=== PATIENT | male | born 2000 | race Caucasian/White ===

== ENCOUNTER 2022-08-14 22:05 | Inpatient (IN) | payer OTHER, SELFPAY ==
[2022-08-14 18:00] VITALS: BP 142/92; PULSE 85
[2022-08-14] MEDS: hydrOXYzine HCL 25 MG TABLET PO (23:29)
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
[2022-08-15] MEDS: hydrOXYzine HCL 25 MG TABLET PO ×2 (08:34→18:05)
[2022-08-15 08:55] VITALS: BP 124/75; RESP 18; TEMP 37.2; O2SAT 99
[2022-08-15 08:55] LABS: Estimated Average Glucose 97 mg/dL
--- NOTE | 2022-08-15 09:00 | ECG_ITS ---
Test Reason : qtc check Blood Pressure : / mmHG Vent. Rate : 089 BPM Atrial Rate : 089 BPM P-R Int : 136 ms QRS Dur : 082 ms QT Int : 344 ms P-R-T Axes : 034 067 024 degrees QTc Int : 418 ms Normal sinus rhythm Normal ECG No previous ECGs available Referred By: Jaymie Segovia Electronically Signed By:AMARJIT GRUBER MD
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
[2022-08-15 09:10] LABS: Cholesterol 233 mg/dL; HDL Cholesterol 48 mg/dL; LDL Cholesterol Calculated 169 mg/dl; Magnesium 2.2 mg/dL (1.6-2.6); Triglycerides 84 mg/dL
[2022-08-15 09:42] LABS: Folate 7.9 ng/mL (> or = 4.0); Free T4 (Free Thyroxine) 1.03 ng/dL (0.71-1.85); Thyroid Stimulating Hormone 1.22 uIU/mL (0.32-4.0); Vitamin B12 645 pg/mL (200-900)
--- NOTE | 2022-08-15 11:51 | PC.NURSE ---
Pt signed a 3-day notice it is up on Sunday, August 21, 2022
[2022-08-15] MEDS: Divalproex Sodium ER 250 MG TAB.ER.24H 750 MG PO (13:13)
[2022-08-15] MEDS: Escitalopram Oxalate 10 MG TABLET 30 MG PO (13:13)
[2022-08-15 14:07] LABS: Alanine Aminotransferase 19 U/L (0-40); Albumin Level 5.1 g/dL (3.5-5.0); Alkaline Phosphatase 78 U/L (39-117); Aspartate Amino Transferase 15 U/L (5-37); Bilirubin Direct 0.1 mg/dL (0.0-0.5); Bilirubin Total 0.6 mg/dL (0.0-1.0); Total Protein 7.8 g/dL (6.5-8.0)
--- NOTE | 2022-08-15 15:37 | P.CONHOSP_ITS ---
History of Present Illness Data of Consult Service Date: 08/15/22 Requesting physician: Santana Connolly Primary Care Provider: Unknown Physician HPI Reason for consult: medical H&P 22-year-old male with history of unspecified seizure, marijuana use, and anxiety/depression admitted to Psychiatry with consult placed to hospitalist service for medical H and P. He states he is taking Depakote and is followed with a neurologist but the etiology of his isolated seizure 2 years ago remains unclear. He denies any alcohol use, illicit drug use, or cigarette smoking. He has had intermittent hypertensive episodes which he attributes to white coat anxiety. He has no complaints at this time. Review of Systems Review of Systems: General: No fevers, malaise, unintentional weight loss HEENT: No blurred vision, diplopia. No sore throat, nasal congestion, rhinorrhea, sinus pain, ear pain Cardiovascular: No chest pain, palpitations, or leg edema Respiratory: No shortness of breath, wheezing, cough GI: No abdominal pain, nausea, vomiting, diarrhea, constipation, melena, hematochezia : No dysuria, hematuria, increased urinary frequency, decreased urinary output MSK: No myalgia, back pain Neuro: No headaches, weakness, paresthesias Skin: No rashes or lesions PMFSH Medical History Anxiety and depression Marijuana use Seizure Social History Household Members: Family Household Members Other:: LIVES WITH SIBLINGS AND MOTHER Housing: Unknown / Unable to assess Do you presently have visiting nurse or other home services: No Patient Tobacco Use Status: Never used Tobacco Smoked in Last 30 Days: No e-Cigarette/Vaping Use: Never Used Patient Interested in Nicotine Replacement: No Patient Given Instructions on How to Stop Smoking: No Second Hand Smoke Exposure: No Use of substances other than those prescribed or required for medical reasons: Yes Substance Use Type: Marijuana Substance Use Frequency: Chronic Longstanding Last Used Substance: Just Prior to Admission Currently Displaying Signs/Symptoms of Drug Intoxication Withdrawal: No Any prior treatment program specific to substance use: No Have you been hit, kicked, punched, or otherwise hurt by someone within the past year? If so, by whom?: No Do you feel safe in your current relationship?: No Current Relationship Is there a partner from a previous relationship who is making you feel unsafe now?: No Are you made to feel afraid or neglected: No Advance Directives: No Advance Directives Information Provided: No Do you have thoughts of harming others: None Do you have a plan to hurt others: No Plan Recently lost weight without trying: No Eating poorly because of decreased appetite: No Nutrition Risks: No Nutritional Risk Poor oral hygiene: No Meds Allergies Allergy/AdvReac Type Severity Reaction Status Date / Time No Known Allergies Allergy Verified 08/14/22 17:39 Active Medications: Current Medications Acetaminophen (Acetaminophen 325 Mg Tablet) 650 mg PO Q6H PRN PRN Reason: Headache/Pain Mild Scale (1-3) Al Hydroxide/Mg Hydroxide (Magnesium Hydrox/Alum Hydrox 30 Ml Oral.Susp) 30 ml PO Q6H PRN PRN Reason: Heartburn/Nausea Clonidine HCl (Clonidine Hcl 0.1 Mg Tablet) 0.1 mg PO Q4H PRN; Protocol PRN Reason: Anxiety Divalproex Sodium (Divalproex Sodium 250 Mg Tablet.) 250 mg PO BID SUKUMAR Divalproex Sodium (Divalproex Sodium 500 Mg Tablet.) 500 mg PO BID [facility] Escitalopram Oxalate (Escitalopram Oxalate 10 Mg Tablet) 30 mg PO DAILY [facility] Last Admin: 08/15/22 13:13 Dose: 30 mg Hydroxyzine HCl (Hydroxyzine Hcl 25 Mg Tablet) 25 mg PO Q6H PRN PRN Reason: Anxiety Last Admin: 08/15/22 08:34 Dose: 25 mg Magnesium Hydroxide (Milk Of Magnesia 30 Ml Oral.Susp) 30 ml PO DAILY PRN PRN Reason: Constipation Home Medications Medication Instructions Recorded Confirmed Last Taken Type clonidine HCl 0.1 mg tablet 0.1 mg PO BID PRN Anxiety 08/15/22 08/15/22 Unknown History divalproex 250 mg tablet,delayed 250 mg PO BID 08/15/22 08/15/22 Unknown History release (Depakote) divalproex 500 mg tablet,delayed 500 mg PO BID 08/15/22 08/15/22 Unknown History release (Depakote) escitalopram oxalate 20 mg tablet 20 mg PO DAILY 08/15/22 08/15/22 Unknown History (Lexapro) Physical Exam Vital Signs and Narrative: Vital Signs: Last Vital Signs Temp 99.0 F 08/15/22 08:55 Pulse 85 08/14/22 18:00 Resp 18 08/15/22 08:55 BP 124/75 08/15/22 08:55 Pulse Ox 99 08/15/22 08:55 O2 Del Method Room Air 08/15/22 08:55 Constitutional - Awake and Alert, No apparent distress Eyes - PERRLA, EOMI Cardiovascular - S1S2, RRR, No edema Respiratory - Normal lung expansion, Normal respiratory effort, No respiratory distress, CTA bilaterally Gastrointestinal - NT / ND; +BS; No rebound or guarding Extremities - no calf tenderness bilaterally, no swelling Musculoskeletal - Normal inspection, normal ROM Skin - Warm/Dry Neurological - Alert & oriented x3, CN II-XII in tact, 5/5 strength BUE and BLE Psychological - Appropriate affect Results Labs Labs: Laboratory Results - last 24 hr 08/15/22 08/15/22 08/15/22 08:06 08:06 13:38 Estimat Average Glucose 97 Hemoglobin A1c % 5.0 Magnesium 2.2 Total Bilirubin 0.6 Direct Bilirubin 0.1 AST 15 ALT 19 Alkaline Phosphatase 78 Total Protein 7.8 Albumin 5.1 H Triglycerides 84 Cholesterol 233 LDL Cholesterol, Calc 169 HDL Cholesterol 48 Vitamin B12 645 Folate 7.9 TSH 1.22 Free T4 1.03 Assessment and Plan (1) Routine medical exam: Status: Acute Plan 22-year-old male with history of unspecified seizure, marijuana use, and anxiety/depression admitted to Psychiatry with consult placed to hospitalist service for medical H and P. #Mood disorder -plan per psychiatry #Isolated seizure unclear etiology -Tonic-clonic seizure x 2 years ago #Intermittent HTN- likely anxiety driven white coat htn -Would not recommend antihypertensives at this time -Manage anxiety Thank you for allowing me to participate in this consult. Signing off at this time. Please do not hesitate to call for further questions. Time Spent With Patient Time: Total time managing care of this patient today ____ minutes.
[2022-08-15 16:06] VITALS: BP 146/89; PULSE 74; TEMP 36.3; O2SAT 96
[2022-08-15 18:02] VITALS: BP 150/76; PULSE 85
[2022-08-15] MEDS: cloNIDine HCL 0.1 MG TABLET PO ×2 (18:05→23:11)
--- NOTE | 2022-08-15 21:46 | PC.NURSE ---
Patient approached this promotion writer around 1800 and c/o high level of anxiety and nausea. Patient said he had been taking a nap and woke up anxious and disoriented and was experiencing nausea. This promotion writer gave patient prn dose of Clonidine 0.1 mg po and Hydroxyzine 25 mg po at 1805 with positive effect. Patient was encouraged to ask for prns before his anxiety gets too high. Patient agreed.
[2022-08-15 23:05] VITALS: BP 140/95; PULSE 91
[2022-08-15] MEDS: Divalproex Sodium 500 MG TABLET.DR PO (23:08)
[2022-08-15] MEDS: Divalproex Sodium 250 MG TABLET.DR PO (23:11)
[2022-08-16] MEDS: Divalproex Sodium 500 MG TABLET.DR PO ×2 (09:03→22:17)
[2022-08-16] MEDS: Divalproex Sodium 250 MG TABLET.DR PO ×2 (09:04→22:17)
[2022-08-16] MEDS: Escitalopram Oxalate 10 MG TABLET 30 MG PO (09:04)
[2022-08-16] MEDS: hydrOXYzine HCL 25 MG TABLET PO ×2 (09:11→17:38)
[2022-08-16 09:15] VITALS: BP 131/79; PULSE 81; RESP 18; TEMP 36.6; O2SAT 99
[2022-08-16] MEDS: cloNIDine HCL 0.1 MG TABLET PO ×2 (13:52→22:17)
--- NOTE | 2022-08-16 16:44 | HO.PSYCHPN ---
Subjective Subjective Date of Service: 08/16/22 Reason For Visit: Recurrent major depression, EVER Seizure Disorder Subjective Notes: Conditional Voluntary and 3 Day Interim History: Pt reports no SI, medications are without adverse effects he reports. States he slept OK, no panic attacks today, anxiety overall is decreased and no sx of derealization today. Team has discussed with mother possible application for DMH/DDS Medication Compliance: Yes Side effects from medications: No Attending Groups: Intermittent Review of Systems Acute medical concerns: No Medical Review of Systems: unchanged Mental Status Exam Mental Status Exam Narrative: Pt is alert and oriented; behavior is cooperative, anxious, tremulous; dressed in casual attire with unkempt hair but adequate hygiene; mood is described as anxious and affect congruent; eye contact appropriate; Speech is normal rate, volume and prosody and not pressured; no psychomotor agitation/retardation present; thought process is organized and goal directed; Thought content is on debilitating anxiety, treatment; otherwise pertinent to relevant topics and without any delusional content, paranoid ideations or grandiosity; denies any SI/HI. There is no evidence of perceptual disturbance. Patients insight and judgment appear intact. Patient Appearance: Appropriate Patient Orientation: Person, Place, Time and Situation Level of Consciousness: Alert Patient Behavior: Appropriate, Talkative and Cooperative Mood Description: Anxious and Apprehensive Affect Description: Anxious and Apprehensive Patient Cognition Impaired: No Ability to Follow Directions: Good Speech Pattern: Spontaneous Speech Memory Description: Intact Hallucinations: None Delusions: Not Present Perceptual Disturbances: Derealization (no sx today.) Thought Process: Distracted Thought Content: positive for Suicidal Ideation (denies) Depressive Symptoms: Increased Anxiety Judgement: Fair Diagnostics Vital Signs (24Hr): Vital Signs - 24 hr 08/15/22 18:02 08/15/22 23:05 08/16/22 09:15 Temperature 97.9 F Pulse Rate 85 91 81 Respiratory Rate 18 Blood Pressure 150/76 H 140/95 H 131/79 Pulse Oximetry 99 Oxygen Delivery Method Room Air Labs Labs: Laboratory Results - last 48 hr 08/15/22 08/15/22 08/15/22 08:06 08:06 13:38 Estimat Average Glucose 97 Hemoglobin A1c % 5.0 Magnesium 2.2 Total Bilirubin 0.6 Direct Bilirubin 0.1 AST 15 ALT 19 Alkaline Phosphatase 78 Total Protein 7.8 Albumin 5.1 H Triglycerides 84 Cholesterol 233 LDL Cholesterol, Calc 169 HDL Cholesterol 48 Vitamin B12 645 Folate 7.9 TSH 1.22 Free T4 1.03 Medications Medications Current Medications Acetaminophen (Acetaminophen 325 Mg Tablet) 650 mg PO Q6H PRN PRN Reason: Headache/Pain Mild Scale (1-3) Al Hydroxide/Mg Hydroxide (Magnesium Hydrox/Alum Hydrox 30 Ml Oral.Susp) 30 ml PO Q6H PRN PRN Reason: Heartburn/Nausea Clonidine HCl (Clonidine Hcl 0.1 Mg Tablet) 0.1 mg PO Q4H PRN; Protocol PRN Reason: Anxiety Last Admin: 08/16/22 13:52 Dose: 0.1 mg Divalproex Sodium (Divalproex Sodium 250 Mg Tablet.) 250 mg PO BID [facility] Last Admin: 08/16/22 09:04 Dose: 250 mg Divalproex Sodium (Divalproex Sodium 500 Mg Tablet.) 500 mg PO BID [facility] Last Admin: 08/16/22 09:03 Dose: 500 mg Escitalopram Oxalate (Escitalopram Oxalate 10 Mg Tablet) 30 mg PO DAILY [facility] Last Admin: 08/16/22 09:04 Dose: 30 mg Hydroxyzine HCl (Hydroxyzine Hcl 25 Mg Tablet) 25 mg PO Q6H PRN PRN Reason: Anxiety Last Admin: 08/16/22 09:11 Dose: 25 mg Magnesium Hydroxide (Milk Of Magnesia 30 Ml Oral.Susp) 30 ml PO DAILY PRN PRN Reason: Constipation Allergies Allergies Allergy/AdvReac Type Severity Reaction Status Date / Time No Known Allergies Allergy Verified 08/14/22 17:39 Assessment & Plan Assessment & Plan (1) EVER (generalized anxiety disorder): Status: Acute Code(s): F41.1 - Generalized anxiety disorder (2) Panic disorder: Status: Acute Code(s): F41.0 - Panic disorder [episodic paroxysmal anxiety] (3) ADHD: Status: Acute Code(s): F90.9 - Attention-deficit hyperactivity disorder, unspecified type Plan Patient is a 22-year-old male with history of depression, anxiety, ADHD, possible Seizure disorder (pt had one seizure 2 years ago and has been on depakote since) who presents for sudden bout of De- realization that significantly worried him. -patient meets criteria for EVER with panic disorder; likely PTSD; despite biological loading patient denies any history of manic episodes or behaviors -patient has tolerated Lexapro and agrees to increase dose, understanding that GED often requires higher than regular dosing -will continue Depakote; patient had 1 seizure episode 2 years ago and has been on Depakote ever since. -patient denies that towel around his neck was suicide attempt; he says that intermittently SI will cross his mind but this is chronic and it is not a concern, he has no plans or intention -discussed need for psychiatrist and therapy with which patient agrees Plan: CV Q 15 minute checks Increase Lexapro to 30 mg; often she EVER requires higher dosing than this; will titrate as clinically determined Increase access to clonidine 0.1 mg to q.4h p.r.n. Continue Depakote 750 mg b.i.d. -will get LFTs/ammonia level Reviewed labs from sending facility; CBC, lytes, BUN creatinine within normal limits; UDS negative except for cannabis; valproic acid level 82.8 08/16/22 Continue current regime and plan of care. Informed Consent: understands and further education needed Reason for contiued inpatient stay Substantial Risk for: rapid decompensation Time Spent With Patient Time: Total time managing care of this patient today ____ minutes.
[2022-08-16 22:16] VITALS: BP 134/86; PULSE 87
--- NOTE | 2022-08-17 08:19 | P.PNPSI_ITS ---
Subjective Subjective Date of Service: 08/17/22 Reason For Visit: Recurrent major depression, EVER Seizure Disorder Interim History: Met with patient; discussed with team Patient reports that he is feeling better. Although he did have a panic attack yesterday he says that the frequency of his severe and bouts of anxiety have lessened. Patient is tolerating increased Lexapro and agrees to increase it further to 40 mg. Patient also finding hydroxyzine helpful. Social work discussed case with patient's mother who says patient did have an IEP in high school and had some visual and general processing disabilities; patient has some regressed behaviors at home and due to his anxiety wants to sleep on the floor in her room. Mental Status Exam Mental Status Exam Narrative: Pt is alert and oriented; behavior is cooperative, friendly, more calm; dressed in casual attire with unkempt hair but adequate hygiene; mood is described as little better and affect congruent, more calm; eye contact appropriate; Speech is normal rate, volume and prosody and not pressured; no psychomotor agitation/retardation present; thought process is organized and goal directed; Thought content is on treatment, dealing with debilitating anxiety; otherwise pertinent to relevant topics and without any delusional content, paranoid ideations or grandiosity; denies any SI/HI. There is no evidence of perceptual disturbance. Patients insight and judgment are intact. Diagnostics Vital Signs (24Hr): Vital Signs - 24 hr 08/16/22 09:15 08/16/22 22:16 Temperature 97.9 F Pulse Rate 81 87 Respiratory Rate 18 Blood Pressure 131/79 134/86 Pulse Oximetry 99 Oxygen Delivery Method Room Air Labs Labs: Laboratory Results - last 48 hr 08/15/22 08/15/22 08/15/22 08:06 08:06 13:38 Estimat Average Glucose 97 Hemoglobin A1c % 5.0 Magnesium 2.2 Total Bilirubin 0.6 Direct Bilirubin 0.1 AST 15 ALT 19 Alkaline Phosphatase 78 Total Protein 7.8 Albumin 5.1 H Triglycerides 84 Cholesterol 233 LDL Cholesterol, Calc 169 HDL Cholesterol 48 Vitamin B12 645 Folate 7.9 TSH 1.22 Free T4 1.03 Medications Medications Current Medications Acetaminophen (Acetaminophen 325 Mg Tablet) 650 mg PO Q6H PRN PRN Reason: Headache/Pain Mild Scale (1-3) Al Hydroxide/Mg Hydroxide (Magnesium Hydrox/Alum Hydrox 30 Ml Oral.Susp) 30 ml PO Q6H PRN PRN Reason: Heartburn/Nausea Clonidine HCl (Clonidine Hcl 0.1 Mg Tablet) 0.1 mg PO Q4H PRN; Protocol PRN Reason: Anxiety Last Admin: 08/16/22 22:17 Dose: 0.1 mg Divalproex Sodium (Divalproex Sodium 250 Mg Tablet.) 250 mg PO BID [facility] Last Admin: 08/16/22 22:17 Dose: 250 mg Divalproex Sodium (Divalproex Sodium 500 Mg Tablet.) 500 mg PO BID [facility] Last Admin: 08/16/22 22:17 Dose: 500 mg Escitalopram Oxalate (Escitalopram Oxalate 10 Mg Tablet) 30 mg PO DAILY [facility] Last Admin: 08/16/22 09:04 Dose: 30 mg Hydroxyzine HCl (Hydroxyzine Hcl 25 Mg Tablet) 25 mg PO Q6H PRN PRN Reason: Anxiety Last Admin: 08/16/22 17:38 Dose: 25 mg Magnesium Hydroxide (Milk Of Magnesia 30 Ml Oral.Susp) 30 ml PO DAILY PRN PRN Reason: Constipation Allergies Allergies Allergy/AdvReac Type Severity Reaction Status Date / Time No Known Allergies Allergy Verified 08/14/22 17:39 Assessment & Plan Assessment & Plan (1) EVER (generalized anxiety disorder): Status: Acute Code(s): F41.1 - Generalized anxiety disorder (2) Panic disorder: Status: Acute Code(s): F41.0 - Panic disorder [episodic paroxysmal anxiety] (3) ADHD: Status: Acute Code(s): F90.9 - Attention-deficit hyperactivity disorder, unspecified type Plan Patient is a 22-year-old male with history of depression, anxiety, ADHD, possible Seizure disorder (pt had one seizure 2 years ago and has been on depakote since) who presents for sudden bout of De- realization that significantly worried him. -patient meets criteria for EVER with panic disorder; likely PTSD; despite biological loading patient denies any history of manic episodes or behaviors -patient has tolerated Lexapro and agrees to increase dose, understanding that GED often requires higher than regular dosing -will continue Depakote; patient had 1 seizure episode 2 years ago and has been on Depakote ever since. -patient denies that towel around his neck was suicide attempt; he says that intermittently SI will cross his mind but this is chronic and it is not a concern, he has no plans or intention -discussed need for psychiatrist and therapy with which patient agrees Hospital course: 08/16/22 Continue current regime and plan of care. 08/17 patient reports he is feeling a little better. Still having panic attacks however he says they are lessening in frequency. Patient feels more hopeful. Agrees to increase Lexapro to 40 mg; service writer advisor discussed risks/side effects of titration and patient prefers to risk being on a higher dose than needed as he feels that the potential benefit outweighs the risk. Plan: 3 day notice Q 15 minute checks Will increase Lexapro to 40 mg on 08/19; often EVER requires higher dosing than this; will titrate as clinically determined Continue clonidine 0.1 mg to q.4h p.r.n. Continue Depakote 750 mg b.i.d. -LFTs reviewed and WNL Reviewed labs from sending facility; CBC, lytes, BUN creatinine within normal limits; UDS negative except for cannabis; valproic acid level 82.8 Patient educated on: diagnosis, medication risk/benefits and therapeutic strategies Informed Consent: understands Reason for contiued inpatient stay Substantial Risk for: stable for discharge Time Spent With Patient Time: Total time managing care of this patient today ____ minutes.
[2022-08-17] MEDS: hydrOXYzine HCL 25 MG TABLET PO ×2 (08:32→18:01)
[2022-08-17] MEDS: Escitalopram Oxalate 10 MG TABLET 30 MG PO (08:32)
[2022-08-17] MEDS: Divalproex Sodium 500 MG TABLET.DR PO ×2 (08:32→22:35)
[2022-08-17] MEDS: Divalproex Sodium 250 MG TABLET.DR PO ×2 (08:32→22:35)
[2022-08-17 09:43] VITALS: BP 161/76; PULSE 100; RESP 18; TEMP 36.9; O2SAT 98
[2022-08-17] MEDS: cloNIDine HCL 0.1 MG TABLET PO ×3 (13:00→22:40)
[2022-08-17 16:12] VITALS: BP 114/60; PULSE 75; TEMP 36.6
[2022-08-17 19:35] VITALS: BP 156/90; PULSE 84
[2022-08-17 22:40] VITALS: BP 134/71; PULSE 85
[2022-08-18 06:00] VITALS: BP 117/63; PULSE 95; RESP 14; TEMP 36.6; O2SAT 99
[2022-08-18] MEDS: Escitalopram Oxalate 10 MG TABLET 30 MG PO (08:27)
[2022-08-18] MEDS: Divalproex Sodium 250 MG TABLET.DR PO ×2 (08:27→22:04)
[2022-08-18] MEDS: Divalproex Sodium 500 MG TABLET.DR PO ×2 (08:27→22:04)
[2022-08-18] MEDS: cloNIDine HCL 0.1 MG TABLET PO ×3 (08:41→22:05)
--- NOTE | 2022-08-18 15:45 | HO.PSYCHPN ---
Subjective Subjective Date of Service: 08/18/22 Reason For Visit: Recurrent major depression, EVER Seizure Disorder Interim History: Patient seen. Chart reviewed. Case discussed with RN. Mostly isolative. Asked for PRN clonidine for anxiety. BP somewhat elevated Medication Compliance: Yes Side effects from medications: No Attending Groups: No Review of Systems Acute medical concerns: No Medical Review of Systems: unchanged Mental Status Exam Mental Status Exam Patient Appearance: Unkempt Patient Orientation: Person, Place and Time Level of Consciousness: Lethargic Patient Behavior: Passive and Isolative Mood Description: Apathetic Affect Description: Withdrawn Ability to Follow Directions: Good Speech Pattern: Soft-Spoken Memory Description: Intact Hallucinations: None Delusions: Not Present Thought Process: Linear Thought Content: positive for Poverty of Content Depressive Symptoms: Increased Fatigue Judgement: Fair Diagnostics Vital Signs (24Hr): Vital Signs - 24 hr 08/17/22 16:12 08/17/22 19:35 08/17/22 22:40 Temperature 98 F Pulse Rate 75 84 85 Respiratory Rate Blood Pressure 114/60 156/90 H 134/71 Pulse Oximetry Oxygen Delivery Method 08/18/22 06:00 Temperature 97.8 F Pulse Rate 95 Respiratory Rate 14 Blood Pressure 117/63 Pulse Oximetry 99 Oxygen Delivery Method Room Air Medications Medications Current Medications Acetaminophen (Acetaminophen 325 Mg Tablet) 650 mg PO Q6H PRN PRN Reason: Headache/Pain Mild Scale (1-3) Al Hydroxide/Mg Hydroxide (Magnesium Hydrox/Alum Hydrox 30 Ml Oral.Susp) 30 ml PO Q6H PRN PRN Reason: Heartburn/Nausea Clonidine HCl (Clonidine Hcl 0.1 Mg Tablet) 0.1 mg PO Q4H PRN; Protocol PRN Reason: Anxiety Last Admin: 08/18/22 13:09 Dose: 0.1 mg Divalproex Sodium (Divalproex Sodium 250 Mg Tablet.) 250 mg PO BID@0900,2200 [facility] Last Admin: 08/18/22 08:27 Dose: 250 mg Divalproex Sodium (Divalproex Sodium 500 Mg Tablet.) 500 mg PO BID@0900,2200 [facility] Last Admin: 08/18/22 08:27 Dose: 500 mg Escitalopram Oxalate (Escitalopram Oxalate 20 Mg Tablet) 40 mg PO DAILY [facility] Hydroxyzine HCl (Hydroxyzine Hcl 25 Mg Tablet) 25 mg PO Q6H PRN PRN Reason: Anxiety Last Admin: 08/17/22 18:01 Dose: 25 mg Magnesium Hydroxide (Milk Of Magnesia 30 Ml Oral.Susp) 30 ml PO DAILY PRN PRN Reason: Constipation Allergies Allergies Allergy/AdvReac Type Severity Reaction Status Date / Time No Known Allergies Allergy Verified 08/14/22 17:39 Assessment & Plan Assessment & Plan (1) EVER (generalized anxiety disorder): Status: Acute Code(s): F41.1 - Generalized anxiety disorder (2) Panic disorder: Status: Acute Code(s): F41.0 - Panic disorder [episodic paroxysmal anxiety] Assessment and Plan: No med changes. Lexapro just increased (3) ADHD: Status: Acute Code(s): F90.9 - Attention-deficit hyperactivity disorder, unspecified type Plan Patient is a 22-year-old male with history of depression, anxiety, ADHD, possible Seizure disorder (pt had one seizure 2 years ago and has been on depakote since) who presents for sudden bout of De- realization that significantly worried him. -patient meets criteria for EVER with panic disorder; likely PTSD; despite biological loading patient denies any history of manic episodes or behaviors -patient has tolerated Lexapro and agrees to increase dose, understanding that GED often requires higher than regular dosing -will continue Depakote; patient had 1 seizure episode 2 years ago and has been on Depakote ever since. -patient denies that towel around his neck was suicide attempt; he says that intermittently SI will cross his mind but this is chronic and it is not a concern, he has no plans or intention -discussed need for psychiatrist and therapy with which patient agrees Hospital course: 08/16/22 Continue current regime and plan of care. 08/17 patient reports he is feeling a little better. Still having panic attacks however he says they are lessening in frequency. Patient feels more hopeful. Agrees to increase Lexapro to 40 mg; selling underwriter discussed risks/side effects of titration and patient prefers to risk being on a higher dose than needed as he feels that the potential benefit outweighs the risk. Plan: 3 day notice Q 15 minute checks Will increase Lexapro to 40 mg on 08/19; often EVER requires higher dosing than this; will titrate as clinically determined Continue clonidine 0.1 mg to q.4h p.r.n. Continue Depakote 750 mg b.i.d. -LFTs reviewed and WNL Reviewed labs from sending facility; CBC, lytes, BUN creatinine within normal limits; UDS negative except for cannabis; valproic acid level 82.8 Reason for continued inpatient stay Substantial Risk for: harm to self and inability to function Time Spent With Patient Time: Total time managing care of this patient today ___15_ minutes.
[2022-08-18 15:49] VITALS: BP 121/58; PULSE 75
[2022-08-18] MEDS: hydrOXYzine HCL 25 MG TABLET PO (18:11)
[2022-08-18 22:07] VITALS: BP 178/93; PULSE 103
[2022-08-19 06:00] VITALS: BP 99/51; PULSE 81; RESP 14; TEMP 36.8; O2SAT 99
[2022-08-19] MEDS: Escitalopram Oxalate 20 MG TABLET 40 MG PO (08:43)
[2022-08-19] MEDS: Divalproex Sodium 250 MG TABLET.DR PO ×2 (08:43→22:35)
[2022-08-19] MEDS: Divalproex Sodium 500 MG TABLET.DR PO ×2 (08:43→22:35)
[2022-08-19] MEDS: hydrOXYzine HCL 25 MG TABLET PO ×2 (09:15→21:18)
--- NOTE | 2022-08-19 09:17 | P.PNPSI_ITS ---
Subjective Subjective Date of Service: 08/19/22 Reason For Visit: Recurrent major depression, EVER Seizure Disorder Interim History: Patient seen. Chart reviewed. Case discussed with RN. Patient reporting that Vistaril PRN is helpful and he would like to have a prescription for it when he leaves. Has been calm on the unit, isolative and in bed at times. Medication Compliance: Yes Side effects from medications: No Attending Groups: No Review of Systems Acute medical concerns: No Mental Status Exam Mental Status Exam Patient Appearance: Unkempt Level of Consciousness: Alert Patient Behavior: Appropriate and Isolative Mood Description: Anxious Affect Description: Withdrawn Patient Cognition Impaired: No Speech Pattern: Clear Hallucinations: None Delusions: Not Present Thought Process: Linear Depressive Symptoms: Increased Anxiety and Difficulty Sleeping Judgement: Fair Diagnostics Vital Signs (24Hr): Vital Signs - 24 hr 08/18/22 15:49 08/18/22 22:07 08/19/22 06:00 Temperature 98.2 F Pulse Rate 75 103 H 81 Respiratory Rate 14 Blood Pressure 121/58 L 178/93 H 99/51 L Pulse Oximetry 99 Oxygen Delivery Method Room Air Medications Medications Current Medications Acetaminophen (Acetaminophen 325 Mg Tablet) 650 mg PO Q6H PRN PRN Reason: Headache/Pain Mild Scale (1-3) Al Hydroxide/Mg Hydroxide (Magnesium Hydrox/Alum Hydrox 30 Ml Oral.Susp) 30 ml PO Q6H PRN PRN Reason: Heartburn/Nausea Clonidine HCl (Clonidine Hcl 0.1 Mg Tablet) 0.1 mg PO Q4H PRN; Protocol PRN Reason: Anxiety Last Admin: 08/18/22 22:05 Dose: 0.1 mg Divalproex Sodium (Divalproex Sodium 250 Mg Tablet.) 250 mg PO BID@0900,2200 [facility] Last Admin: 08/19/22 08:43 Dose: 250 mg Divalproex Sodium (Divalproex Sodium 500 Mg Tablet.) 500 mg PO BID@0900,2200 [facility] Last Admin: 08/19/22 08:43 Dose: 500 mg Escitalopram Oxalate (Escitalopram Oxalate 20 Mg Tablet) 40 mg PO DAILY [facility] Last Admin: 08/19/22 08:43 Dose: 40 mg Hydroxyzine HCl (Hydroxyzine Hcl 25 Mg Tablet) 25 mg PO Q6H PRN PRN Reason: Anxiety Last Admin: 08/19/22 09:15 Dose: 25 mg Magnesium Hydroxide (Milk Of Magnesia 30 Ml Oral.Susp) 30 ml PO DAILY PRN PRN Reason: Constipation Allergies Allergies Allergy/AdvReac Type Severity Reaction Status Date / Time No Known Allergies Allergy Verified 08/14/22 17:39 Assessment & Plan Assessment & Plan (1) EVER (generalized anxiety disorder): Status: Acute Code(s): F41.1 - Generalized anxiety disorder (2) Panic disorder: Status: Acute Code(s): F41.0 - Panic disorder [episodic paroxysmal anxiety] Assessment and Plan: No med changes. Lexapro just increased (3) ADHD: Status: Acute Code(s): F90.9 - Attention-deficit hyperactivity disorder, unspecified type Plan Patient is a 22-year-old male with history of depression, anxiety, ADHD, possible Seizure disorder (pt had one seizure 2 years ago and has been on depakote since) who presents for sudden bout of De- realization that significantly worried him. -patient meets criteria for EVER with panic disorder; likely PTSD; despite biological loading patient denies any history of manic episodes or behaviors -patient has tolerated Lexapro and agrees to increase dose, understanding that GED often requires higher than regular dosing -will continue Depakote; patient had 1 seizure episode 2 years ago and has been on Depakote ever since. -patient denies that towel around his neck was suicide attempt; he says that intermittently SI will cross his mind but this is chronic and it is not a concern, he has no plans or intention -discussed need for psychiatrist and therapy with which patient agrees Hospital course: 08/16/22 Continue current regime and plan of care. 08/17 patient reports he is feeling a little better. Still having panic attacks however he says they are lessening in frequency. Patient feels more hopeful. Agrees to increase Lexapro to 40 mg; magazine writer discussed risks/side effects of titration and patient prefers to risk being on a higher dose than needed as he feels that the potential benefit outweighs the risk. 08/18 no med changes 08/19 discussed op[tion of standing vistaril but patient prefers to keep it PRN. Wants a prescription for it at discharge. Plan: 3 day notice Q 15 minute checks Will increase Lexapro to 40 mg on 08/19; often EVER requires higher dosing than this; will titrate as clinically determined Continue clonidine 0.1 mg to q.4h p.r.n. Continue Depakote 750 mg b.i.d. -LFTs reviewed and WNL Reviewed labs from sending facility; CBC, lytes, BUN creatinine within normal limits; UDS negative except for cannabis; valproic acid level 82.8 Reason for continued inpatient stay Substantial Risk for: harm to self Time Spent With Patient Time: Total time managing care of this patient today ____ minutes.
[2022-08-19] MEDS: cloNIDine HCL 0.1 MG TABLET PO ×2 (14:28→22:35)
[2022-08-19 18:30] VITALS: BP 140/80; PULSE 83; TEMP 36.4
[2022-08-20 06:00] VITALS: BP 113/55; PULSE 71; RESP 14; TEMP 36.9; O2SAT 100
[2022-08-20] MEDS: Escitalopram Oxalate 20 MG TABLET 40 MG PO (08:32)
[2022-08-20] MEDS: Divalproex Sodium 250 MG TABLET.DR PO ×2 (08:32→23:02)
[2022-08-20] MEDS: Divalproex Sodium 500 MG TABLET.DR PO ×2 (08:32→23:02)
--- NOTE | 2022-08-20 09:13 | HO.PSYCHPN ---
Subjective Subjective Date of Service: 08/20/22 Reason For Visit: Recurrent major depression, EVER Seizure Disorder Subjective Notes: 3 Day (expires 08/21) Interim History: Reports sleeping and eating ok. Denies depression or anxiety. Medication Compliance: Yes Side effects from medications: No Attending Groups: No Review of Systems Acute medical concerns: No Mental Status Exam Mental Status Exam Patient Appearance: Well Grooomed Level of Consciousness: Alert Patient Behavior: Appropriate Mood Description: Calm Speech Pattern: Clear Hallucinations: None Delusions: Not Present Thought Process: Intact Thought Content: negative for Suicidal Ideation or negative for Homicidal Ideation Judgement: Fair Diagnostics Vital Signs (24Hr): Vital Signs - 24 hr 08/19/22 18:30 08/20/22 06:00 Temperature 97.6 F 98.5 F Pulse Rate 83 71 Respiratory Rate 14 Blood Pressure 140/80 H 113/55 L Pulse Oximetry 100 Oxygen Delivery Method Room Air Medications Medications Current Medications Acetaminophen (Acetaminophen 325 Mg Tablet) 650 mg PO Q6H PRN PRN Reason: Headache/Pain Mild Scale (1-3) Al Hydroxide/Mg Hydroxide (Magnesium Hydrox/Alum Hydrox 30 Ml Oral.Susp) 30 ml PO Q6H PRN PRN Reason: Heartburn/Nausea Clonidine HCl (Clonidine Hcl 0.1 Mg Tablet) 0.1 mg PO Q4H PRN; Protocol PRN Reason: Anxiety Last Admin: 08/19/22 22:35 Dose: 0.1 mg Divalproex Sodium (Divalproex Sodium 250 Mg Tablet.) 250 mg PO BID@0900,2200 [facility] Last Admin: 08/20/22 08:32 Dose: 250 mg Divalproex Sodium (Divalproex Sodium 500 Mg Tablet.) 500 mg PO BID@0900,2200 [facility] Last Admin: 08/20/22 08:32 Dose: 500 mg Escitalopram Oxalate (Escitalopram Oxalate 20 Mg Tablet) 40 mg PO DAILY [facility] Last Admin: 08/20/22 08:32 Dose: 40 mg Hydroxyzine HCl (Hydroxyzine Hcl 25 Mg Tablet) 25 mg PO Q6H PRN PRN Reason: Anxiety Last Admin: 08/19/22 21:18 Dose: 25 mg Magnesium Hydroxide (Milk Of Magnesia 30 Ml Oral.Susp) 30 ml PO DAILY PRN PRN Reason: Constipation Allergies Allergies Allergy/AdvReac Type Severity Reaction Status Date / Time No Known Allergies Allergy Verified 08/14/22 17:39 Assessment & Plan Assessment & Plan (1) EVER (generalized anxiety disorder): Status: Acute Code(s): F41.1 - Generalized anxiety disorder (2) Panic disorder: Status: Acute Code(s): F41.0 - Panic disorder [episodic paroxysmal anxiety] Assessment and Plan: No med changes. Lexapro just increased (3) ADHD: Status: Acute Code(s): F90.9 - Attention-deficit hyperactivity disorder, unspecified type Plan Patient is a 22-year-old male with history of depression, anxiety, ADHD, possible Seizure disorder (pt had one seizure 2 years ago and has been on depakote since) who presents for sudden bout of De- realization that significantly worried him. -patient meets criteria for EVER with panic disorder; likely PTSD; despite biological loading patient denies any history of manic episodes or behaviors -patient has tolerated Lexapro and agrees to increase dose, understanding that GED often requires higher than regular dosing -will continue Depakote; patient had 1 seizure episode 2 years ago and has been on Depakote ever since. -patient denies that towel around his neck was suicide attempt; he says that intermittently SI will cross his mind but this is chronic and it is not a concern, he has no plans or intention -discussed need for psychiatrist and therapy with which patient agrees Hospital course: 08/16/22 Continue current regime and plan of care. 08/17 patient reports he is feeling a little better. Still having panic attacks however he says they are lessening in frequency. Patient feels more hopeful. Agrees to increase Lexapro to 40 mg; jingle writer discussed risks/side effects of titration and patient prefers to risk being on a higher dose than needed as he feels that the potential benefit outweighs the risk. 08/18 no med changes 08/19 discussed option of standing vistaril but patient prefers to keep it PRN. Wants a prescription for it at discharge. 08/20 no med changes Plan: 3 day notice Q 15 minute checks Will increase Lexapro to 40 mg on 08/19; often EVER requires higher dosing than this; will titrate as clinically determined Continue clonidine 0.1 mg to q.4h p.r.n. Continue Depakote 750 mg b.i.d. -LFTs reviewed and WNL Reviewed labs from sending facility; CBC, lytes, BUN creatinine within normal limits; UDS negative except for cannabis; valproic acid level 82.8 Reason for continued inpatient stay Substantial Risk for: stable for discharge (provided follow up and increased supports in place) Time Spent With Patient Time: Total time managing care of this patient today ____ minutes.
[2022-08-20] MEDS: hydrOXYzine HCL 25 MG TABLET PO ×2 (11:29→18:06)
[2022-08-20] MEDS: cloNIDine HCL 0.1 MG TABLET PO ×2 (13:53→23:06)
[2022-08-20 23:00] VITALS: BP 101/51; PULSE 66; TEMP 36.4
[2022-08-21] MEDS: Divalproex Sodium 500 MG TABLET.DR PO (09:10)
[2022-08-21] MEDS: Divalproex Sodium 250 MG TABLET.DR PO (09:10)
[2022-08-21] MEDS: Escitalopram Oxalate 20 MG TABLET 40 MG PO (09:10)
[2022-08-21 09:12] VITALS: BP 133/88; PULSE 88; RESP 14; TEMP 37.2; O2SAT 99
[2022-08-21] MEDS: hydrOXYzine HCL 25 MG TABLET PO (10:06)
--- NOTE | 2022-08-21 11:06 | PM.PSYDC ---
DS: Providers Provider Date of Service: 08/21/22 Date of admission: 08/14/22 22:05 Date of discharge: 08/21/22 Primary care physician: Unknown Physician Attending physician on admission: Santana Connolly Consults: 08/14/22 17:39 Consult to Hospitalist Routine Comment: Consulting Provider: Hospitalist Reason For Exam: Transfer from [facility] Attending physician on discharge: Santana Connolly DS: Diagnosis Discharge Diagnosis (1) EVER (generalized anxiety disorder): Status: Acute (2) Panic disorder: Status: Acute (3) ADHD: Status: Acute DS: Medications Discharge Medications Home Medications: Home Medications Medication Instructions Recorded Confirmed divalproex 250 mg tablet,delayed 250 mg PO BID 08/15/22 08/15/22 release (Depakote) divalproex 500 mg tablet,delayed 500 mg PO BID 08/15/22 08/15/22 release (Depakote) Previous Rx's Medication Instructions Recorded clonidine HCl 0.1 mg tablet 0.1 mg PO Q4H PRN Anxiety 30 days 08/21/22 #90 tabs escitalopram oxalate 20 mg tablet 40 mg PO DAILY 30 days #60 tabs 08/21/22 hydroxyzine HCl 25 mg tablet 25 mg PO TID PRN Anxiety 30 days 08/21/22 #90 tabs Mental Status Exam Mental Status Exam Narrative: Pt is alert and oriented; behavior is cooperative, friendly, more calm; dressed in casual attire with unkempt hair but adequate hygiene; mood is described as good and affect congruent, more calm; eye contact appropriate; Speech is normal rate, volume and prosody and not pressured; no psychomotor agitation/retardation present; thought process is organized and goal directed; Thought content is on continuing treatment, discharge; otherwise pertinent to relevant topics and without any delusional content, paranoid ideations or grandiosity; denies any SI/HI. There is no evidence of perceptual disturbance. Patients insight and judgment are intact. Data Data Completed and Pending Completed studies during hospitalization [Text1]: 08/15/22 08/15/22 08/15/22 08:06 08:06 13:38 Estimat Average Glucose 97 Hemoglobin A1c % 5.0 Magnesium 2.2 Total Bilirubin 0.6 Direct Bilirubin 0.1 AST 15 ALT 19 Alkaline Phosphatase 78 Total Protein 7.8 Albumin 5.1 H Triglycerides 84 Cholesterol 233 LDL Cholesterol, Calc 169 HDL Cholesterol 48 Vitamin B12 645 Folate 7.9 TSH 1.22 Free T4 1.03 DS: Summary Hospital Course Hospital Course: Patient is a 22-year-old male with history of depression, anxiety, ADHD, possible Seizure disorder (pt had one seizure 2 years ago and has been on depakote since) who presents for sudden bout of De- realization that significantly worried him. On admission, patient was already feeling better and agreed to increase his Lexapro. Denied any SI at all. He was diagnosed with EVER with panic disorder and thought likely to have PTSD; ASD remaining rule out. Despite biological loading for bipolar disorder, patient denies any history of manic episodes or behaviors and bipolar was currently ruled out; patient remained on outpatient regimen of Depakote which been started for history of seizures. Patient continued to have brief near panic attacks on the unit however he reported they were significantly less intense and less frequent, resolving overall quickly and even tolerable. Patient tolerated increased Lexapro dose and felt much more calm and stable; he said he is feeling hopeful about continued improvement and agreed to outpatient therapy. Patient remained in good behavioral and impulse control throughout his time on the unit and was appropriate with peers and staff. Patient was in a good mood, remaining hopeful and optimistic, without any SI and feeling ready for discharge. His 3 day notice was coming due. He Is returning home to live with his family who is supportive. While patient remains vulnerable to mood lability and dysregulation, he is currently stable and his overall stability appears to be significantly improved. Patient was not in imminent risk for harm to self or others and his request for discharge honored. Time spent discussing smoking cessation with patient: 3 to 10 minutes Status at Discharge Functional status at discharge: independent ambulation Overall status at discharge: patient is back to baseline Time Spent with Patient Time attestation: Total time managing care of this patient today ____ minutes. Time spent: Less than 30 minutes Discharge Plan Discharge Anticipated Discharge Date/Time: 08/21/22 11:05 Patient Disposition: Home, Self-Care Discharge Diagnosis: EVER Referrals: Department of Mental Health (DM) [Other] - 1 Week (Referral to the Department of Mental Health [facility] will review application which can take up to 90 days. They will follow-up with you, but you can also call and request an update on your application.) Department of Developmental Services (DDS) [Other] - 1 Week (Application for DDS is provided in your discharge paperwork. You will need to work with your parent to obtain required information and documentation before submitting. You have been referred to a CSP worker through your outpatient mental health agency [facility] who will be able to aid you in this process.) Clinical and Support Options [Other] - 08/23/22 11:00 am (Referral for Outpatient psychiatry and therapy services and community support program (CSP) worker Patient initial Therapy Intake Appointment is on 08/23/2022 at 11:00 am with Samaria Moore at [facility] in [place]. ) [Other] - 08/28/22 11:15 am (IN OFFICE) Discharge Medications: New escitalopram oxalate 20 mg Tablet 40 mg PO DAILY 30 Days Qty: 60 0RF hydroxyzine HCl 25 mg Tablet 25 mg PO TID PRN (Reason: Anxiety) 30 Days Qty: 90 0RF Continued divalproex [Depakote] 250 mg Tablet,Delayed Release (Dr/Ec) 250 mg PO BID divalproex [Depakote] 500 mg Tablet,Delayed Release (Dr/Ec) 500 mg PO BID Changed clonidine HCl 0.1 mg Tablet 0.1 mg PO Q4H PRN (Reason: Anxiety) 30 Days Qty: 90 0RF Discontinued escitalopram oxalate [Lexapro] 20 mg Tablet 20 mg PO DAILY Discharge Orders: Discharge Order (Routine); Ordered 08/21/22 Ordered By: Santana Connolly Diet: Regular diet Activity on Discharge: As tolerated Stand Alone Forms: Patient Portal Discharge page, Community Support Care Plan Goals: Maintain mood and safe behaviors Take medications as prescribed Continue to pursue sobriety Practice coping skills Continue with outpatient providers and reach out to them as needed Health Concerns: Mood stability and behaviors Plan of Treatment: Follow up with your PCP, psychiatric provider and other outpatient providers regarding above concerns Take medications as prescribed Assessment: Risk assessment at time of discharge:? Patient was interviewed prior to discharge and found to be fully oriented and without any SI or HI. Patient has insight and demonstrates good judgment in terms of wanting to pursue treatment. Patient is not in imminent risk of harm to self or others and has a safety plan that includes presenting to the closest ER or calling 911 if feeling unsafe.? Patient has been observed closely by nursing and unit staff throughout admission; patient has not engaged in any behaviors that suggest dangerousness to self or others and has demonstrated appropriate behaviors and impulse control Discharge Date/Time: 08/21/22 11:38
== END 2022-08-21 11:38 | disposition home or self-care (01) | DRG 756 ==
PROVIDERS: Clinical Nurse Specialist Psychiatric/Mental Health, Adult; Admitting Provider Psychiatry & Neurology Psychiatry; Visit Provider Psychiatry & Neurology Psychiatry
DX: F41.1 Generalized anxiety disorder (principal); G40.909 Epilepsy, unspecified, not intractable, without status epilepticus; F41.0 Panic disorder [episodic paroxysmal anxiety]; F90.9 Attention-deficit hyperactivity disorder, unspecified type; F43.10 Post-traumatic stress disorder, unspecified; Z79.899 Other long term (current) drug therapy
CPT/HCPCS: 36415; 80061; 80076; 82607; 82746; 83036; 83735; 84439; 84443; 93005